=== PATIENT | female | born 1975 | race Caucasian/White ===

== ENCOUNTER → 2016-04-12 | Outpatient (CLI) | payer OTHER ==
[~2016-04-12] MED LIST: AMOXICILLIN500 MG PO; AUGMENTIN 875875 MG PO; CLEOCIN150 MG PO; DAYPRO600 M1 PO; FLONASE ALLERG9.9 ML NS; HYDROCODONE BIT1 T11 PO; MEDROL DOSEPAK4 MG PO; PROAIR HFA8.5 GM INH; PROTONIX40 MG PO; Peridex 473 ML473 ML PO; ROBAXIN750 MG PO; TRAMADOL HCL50 MG PO; TRIMOX500 MG PO; ZITHROMAX250 MG PO; ZYRTEC10 MG PO
== END ==
LOC: RAD 12:41
DX: J40 Bronchitis, not specified as acute or chronic (principal); R05 Cough

== ENCOUNTER 2017-04-10 13:53 | Emergency (ER) | payer OTHER ==
[~2017-04-10] VITALS: Ht 167.6 cm; Wt 78.0 kg
[2017-04-10 14:17] VITALS: BP 116/72
[2017-04-10] MEDS ORDERED: CYCLOBENZAPRINE10 MG PO (17:23)
[2017-04-10] MEDS ORDERED: MEDROL DOSEPAK4 MG PO (17:23)
[2017-04-10] MEDS ORDERED: NAPROSYN500 MG PO (17:23)
== END 2017-04-10 17:40 | disposition home or self-care (01) ==
LOC: ED 13:53
DX: M54.12 Radiculopathy, cervical region (principal); M25.512 Pain in left shoulder; Z88.1 Allergy status to other antibiotic agents

== ENCOUNTER → 2017-04-17 | Outpatient (CLI) | payer OTHER ==
[~2017-04-17] MED LIST changes: +CYCLOBENZAPRINE10 MG PO; +NAPROSYN500 MG PO
== END | disposition home or self-care (01) ==
LOC: MRI 08:53
DX: M50.222 Other cervical disc displacement at C5-C6 level (principal); M48.02 Spinal stenosis, cervical region; G54.2 Cervical root disorders, not elsewhere classified

== ENCOUNTER 2018-07-10 09:55 | Emergency (ER) | payer OTHER ==
[~2018-07-10] VITALS: Ht 170.1 cm; Wt 83.0 kg
[2018-07-10 09:56] VITALS: BP 143/87
[2018-07-10] MEDS ORDERED: MEDROL DOSEPAK4 MG PO (10:26)
== END 2018-07-10 10:59 | disposition home or self-care (01) ==
LOC: ED 09:55
DX: L25.9 Unspecified contact dermatitis, unspecified cause (principal); Z88.1 Allergy status to other antibiotic agents; Z79.899 Other long term (current) drug therapy

== ENCOUNTER 2018-10-17 12:12 | Emergency (ER) | payer OTHER ==
[~2018-10-17] VITALS: Ht 170.1 cm; Wt 78.5 kg
[2018-10-17 12:13] VITALS: BP 152/70
[2018-10-17] MEDS ORDERED: PREDNISONE20 M1 PO (12:40)
== END 2018-10-17 12:57 | disposition home or self-care (01) ==
LOC: ED 12:12
DX: L25.9 Unspecified contact dermatitis, unspecified cause (principal); Z88.1 Allergy status to other antibiotic agents; Z79.899 Other long term (current) drug therapy

== ENCOUNTER → 2019-06-28 | Outpatient (CLI) | payer OTHER ==
[~2019-06-28] MED LIST changes: +PREDNISONE20 M1 PO
[2019-06-28 12:42] LABS: BILIRUBIN NEGATIVE (NEGATIVE); BLOOD 3+ (NEGATIVE); CLARITY CLOUDY (CLEAR); COLOR YELLOW (YELLOW); GLUCOSE NEGATIVE (NEGATIVE); KETONE NEGATIVE (NEGATIVE); LEUKO ESTERASE 2+ (NEGATIVE); NITRITE NEGATIVE (NEGATIVE); UROBILINOGEN 0.2 E.U./dl (0.2-1.0)
[2019-06-28 12:48] LABS: RBC TNTC rbc/hpf (0-2); WBC TNTC wbc/hpf (0-5)
== END | disposition home or self-care (01) ==
LOC: LAB 12:16
PROVIDERS: Nurse Practitioner Family
DX: R30.0 Dysuria (principal)

== ENCOUNTER → 2019-09-19 | Outpatient (CLI) | payer OTHER | END | disposition home or self-care (01) | LOC: RAD 15:21 | DX: K62.89 Other specified diseases of anus and rectum (principal); R10.84 Generalized abdominal pain ==

== ENCOUNTER → 2023-08-23 | Outpatient (CLI) | payer OTHER | END | disposition home or self-care (01) | LOC: RAD 17:21 | PROVIDERS: ATTEND Chiropractor | DX: M54.2 Cervicalgia (principal) ==